=== PATIENT | female | born 1985 | race African-American/Black ===

== ENCOUNTER 2020-08-14 21:39 | Emergency (ER) | payer MEDICAID ==
[~2020-08-14] VITALS: Ht 172.7 cm; Wt 72.0 kg
[2020-08-14] MEDS ORDERED: SODIUM CHLORIDE 0.9% 1,000 ML IV ONE (22:00)
[2020-08-14] MEDS ORDERED: BUPIVACAINE HCL/PF 0.5% (5MG/ML) 10ML INFIL ONE (22:30)
[2020-08-14] MEDS ORDERED: OXYCODONE HCL/ACETAMINOPHEN 5/325MG TABLET PO ONE (22:45)
[2020-08-15] VITALS: BP 122/85
== END 2020-08-15 | disposition home or self-care (01) ==
LOC: ER 21:39
DX: S02.5XXA Fracture of tooth (traumatic), initial encounter for closed fracture (principal); K08.89 Other specified disorders of teeth and supporting structures; X58.XXXA Exposure to other specified factors, initial encounter; Y93.9 Activity, unspecified; Y92.9 Unspecified place or not applicable
CPT/HCPCS: 93005; 99284; J3490; J7030

== ENCOUNTER 2022-05-27 02:25 | Emergency (ER) | payer MEDICAID, OTHER ==
[~2022-05-27] VITALS: Ht 172.7 cm; Wt 60.0 kg
[2022-05-27 02:59] VITALS: BP 134/88
[2022-05-27] MEDS ORDERED: BACITRACIN ZINC OINT UDPKT TOP ONE (04:00)
[2022-05-27] MEDS ORDERED: LIDOCAINE HCL/EPINEPHRINE 1%-EPI 1:100,000 20 ML VIAL INFIL ONE (04:00)
[2022-05-27] MEDS ORDERED: CLIN-116 MT (04:16)
[2022-05-27] MEDS ORDERED: LIDOCAINE HCL 1%/EPI 1:200,000 30 ML VIAL MC NR (04:30)
== END 2022-05-27 05:01 | disposition home or self-care (01) ==
LOC: ER 02:25
DX: S01.111A Laceration without foreign body of right eyelid and periocular area, initial encounter (principal); S09.8XXA Other specified injuries of head, initial encounter; W01.119A Fall on same level from slipping, tripping and stumbling with subsequent striking against unspecified sharp object, initial encounter; Y93.9 Activity, unspecified; Y92.009 Unspecified place in unspecified non-institutional (private) residence as the place of occurrence of the external cause; Z88.3 Allergy status to other anti-infective agents
CPT/HCPCS: 12011; 70450; 99284; J3490